=== PATIENT | male | born 1980 | race Caucasian/White ===

== ENCOUNTER 2017-01-20 19:40 | Emergency (ER) | payer OTHER | END 2017-01-20 20:20 | disposition home or self-care (01) | LOC: ER1 19:40 | DX: S83.91XA Sprain of unspecified site of right knee, initial encounter (principal); I10 Essential (primary) hypertension; E78.5 Hyperlipidemia, unspecified; M10.9 Gout, unspecified; Z90.49 Acquired absence of other specified parts of digestive tract; X58.XXXA Exposure to other specified factors, initial encounter | CPT/HCPCS: 96372; 99283; J1885 ==